=== PATIENT | female | born 1985 | race Caucasian/White ===

== ENCOUNTER → 2022-06-29 | Outpatient (CLI) | payer OTHER, SELFPAY | END | disposition home or self-care (01) | PROVIDERS: Referring Provider Physician Assistant; Visit Provider Physician Assistant | DX: R05.9 Cough, unspecified (principal) | CPT/HCPCS: 87070; 87077; 87205 ==

== ENCOUNTER → 2022-10-18 | Outpatient (CLI) | payer OTHER, SELFPAY ==
[2022-10-18 12:30] LABS: Absolute Lymphocyte Count 2.05 X10^3/uL (0.83-4.51); Absolute Neutrophil Count 3.9 X10^3/uL (2.0-7.7); Basophil# 0.05 X10^3/uL; Basophil% 0.8 % (0-1); Eosinophil# 0.04 X10^3/uL; Eosinophils% 0.6 % (0-5); Hematocrit 41.8 % (37-47); Hemoglobin 13.7 g/dL (12.0-15.0); Lymphocyte # 2.05 X10^3/ul (0.83-4.51); Lymphocyte % 32.2 % (19-41); Mean Corp Hgb Conc 32.8 g/dL (32-36); Mean Corpuscular Hgb 30.1 pg (27.0-32.0); Mean Corpuscular Volume 91.9 fL (81-99); Mean Platelet Vol. 11.2 fl (6.2-12.0); Monocyte# 0.36 X10^3/uL; Monocyte% 5.7 % (0-10); NRBC Flagged by Analyzer 0 % (0-5); Neutrophil # 3.85 X10^3/uL (2.7-7.7); Neutrophil % 60.5 % (47-70); Platelet Count 288 K/mm3 (150-450); RBC Distribution Width SD 42.9 fl (35.1-43.9); Red Blood Count 4.55 M/mm3 (4.2-5.4); White Blood Count 6.4 K/mm3 (4.4-11.0)
[2022-10-18 13:15] LABS: ALB/GLOB Ratio 1.1 RATIO (0.9-2.4); AST(SGOT) 14 U/L (15-37); Alanine Aminotransfer ALT/SGPT 33 U/L (13-56); Alkaline Phosphatase 57 U/L (45-117); Anion Gap 4 (5-15); BUN 10 mg/dL (7-18); BUN/Creat Ratio 13.1 RATIO (10-20); Calcium,Total 9.2 mg/dL (8.5-10.1); Chloride 107 mmol/L (98-107); Cholesterol 203 mg/dL (200); Creatinine, Serum 0.76 mg/dL (0.55-1.02); EST Glomerular Filtration Rate 91 mL/min (>60); Est Glom Filt Rate - Afr Amer 110 mL/min (>60); Globulin 3.8 g/dL (2.2-4.2); Glucose 93 mg/dL (74-106); High Density Lipoprotein 67 mg/dL; Potassium 4.1 mmol/L (3.5-5.1); Protein, Total 7.8 g/dL (6.4-8.2); Sodium Level 138 mmol/L (136-145); Triglycerides 114 mg/dL; Very Low Density Lipoprotein 23 mg/dL (5-40)
== END | disposition home or self-care (01) ==
LOC: BIMLAB 08:51
PROVIDERS: PCP Internal Medicine; Referring Provider Internal Medicine; Visit Provider Internal Medicine
DX: Z00.00 Encounter for general adult medical examination without abnormal findings (principal)
CPT/HCPCS: 36415; 80053; 80061; 85025

== ENCOUNTER → 2022-11-20 | Outpatient (CLI) | payer OTHER, SELFPAY ==
[2022-11-29 20:12] LABS: HPV APTIMA, High Risk Negative (Negative)
== END | disposition home or self-care (01) ==
PROVIDERS: PCP Internal Medicine; Referring Provider Nurse Practitioner Women's Health; Visit Provider Nurse Practitioner Women's Health
DX: N97.9 Female infertility, unspecified (principal); Z12.4 Encounter for screening for malignant neoplasm of cervix
CPT/HCPCS: 36415; 87624; 88175; G0145

== ENCOUNTER → 2023-04-28 | Outpatient (CLI) | payer OTHER, SELFPAY ==
--- NOTE | 2023-04-28 11:58 | BI_ITS ---
MAMMOGRAPHY - BILATERAL SCREENING REASON FOR EXAM: Female, 37 years old. Routine annual screening examination. PERTINENT HISTORY: Grandmother with breast cancer. TECHNIQUE: Digital bilateral breast phuong (3D mammographic acquisition) in the CC and MLO projections. 2-D mediolateral oblique (MLO) and craniocaudad (CC) views of both breasts were obtained. CAD: Full Field Digital Mammography with Computer Added Detection was performed. COMPARISON: None. Baseline examination. FINDINGS: Breast Composition: The breasts are extremely dense, which lowers the sensitivity of mammography. There are no dominant masses or suspicious calcifications. Small benign appearing bilateral axillary lymph nodes. No other significant abnormalities are identified. There has been no significant change since the prior study. BI/SCRN MAMM (CAD)W/PHUONG BILAT IMPRESSION: Stable bilateral screening mammogram. Yearly follow-up mammogram recommended. (A) ASSESSMENT CATEGORY: BIRADS Category 2: Benign. A letter regarding these results will be sent to the patient by the facility within 30 days. Approximately 10% of breast cancers are not detected by mammography. A normal mammogram should not delay biopsy of a clinically suspicious abnormality. [id number] Electronically Signed: Michael Mead MD at 14:42 EDT ,
== END | disposition home or self-care (01) ==
LOC: OPBI 11:56
PROVIDERS: PCP Internal Medicine; Referring Provider Nurse Practitioner Women's Health; Visit Provider Nurse Practitioner Women's Health
DX: Z12.31 Encounter for screening mammogram for malignant neoplasm of breast (principal); Z80.3 Family history of malignant neoplasm of breast
CPT/HCPCS: 77063; 77067

== ENCOUNTER → 2023-11-24 | Outpatient (CLI) | payer OTHER, SELFPAY ==
--- OUTSIDE RECORDS SUMMARY | 2023-11-24 13:15 | XMS RPT_ITS | CCD ---
Author Name Unknown Address [address] [place] [address] Organization [facility] Care Team Providers Care Forms Examiner Name Role Phone Keisha JACKSON, Luma Mullins Primary Care Provider Unavailable Primary Care Provider Unavailabl e Allergies Allergy Classification Reported Allergen(s) Allergy Type Date of Onset Reaction(s) Facility (2 sources) cow milk allergenic extract Drug Allergy 12-06-2019 [facility] Medications Current Medications Medication Drug Class(es) Dates Sig (Normalized) Sig (Original) amoxicillin 875 mg / clavulanate 125 mg oral tablet (1 source) Penicillin-class Antibacterial Start: 05-19-2022 End: 05-26-2022 take 1 tablet by mouth twice daily amoxicillin-clav ulanic acid (AUGMENTIN) 875-125 mg per tablet Indications: Bacterial sinusitis Take 1 tablet by mouth twice daily for 7 days. 14 tablet 0 05/19/2022 05/26/2022 Active Completed/Discontinued Medications Medication Drug Class(es) Dates Sig (Normalized) Sig (Original) ascorbic acid/collagen hydr (ASCORBIC ACID-COLLAGEN ORAL) (2 sources) ascorbic acid/co llagen hydr (ASCORBIC ACID-COLLAGEN ORAL) Take by mouth. 0 Active Problems Problem Classification Problem Date Documented Da te Episodic/Chronic Other upper respiratory infections (1 source) Bacterial sinusitis; Translations: [Chronic sinusitis, unspecified] Chronic Other upper respiratory infections (1 source) Recurrent acute sinusitis; Translations: [Acute recurrent maxillary sinusitis] Episodic Results Test Name Value Interpretation Reference Range Facil ity Vital Signs Date Time Vital Sign Value Performing Clinician Faci lity 06-09-2022 10:57-0400 Body temperature 98.29 [degF] Zaira Hanley APRN.SOCIAL SERVICE TECHNICIAN Work Phone: [facility] 06-09-2022 10:57-0400 Body weight 92.99 kg Zaira Hanley CARBONIZER TESTER.SOCIAL SERVICE TECHNICIAN Work Phone: [facility] 06-09-2022 10:57-0400 Diastolic blood pressure 84 mm[Hg] Zaira Talon CARBONIZER TESTER.SOCIAL SERVICE TECHNICIAN Work Phone: [facility] 06-09-2022 10:57-0400 Heart rate 72 /min Zaira Talon CARBONIZER TESTER.SOCIAL SERVICE TECHNICIAN Work Phone: [facility] 06-09-2022 10:57-0400 Respiratory rate 20 /min Zaira Talon CARBONIZER TESTER.SOCIAL SERVICE TECHNICIAN Work Phone: [facility] 06-09-2022 10:57-0400 SaO2% (BldA) [Mass fraction] 100 % Zaira Pondk CARBONIZER TESTER.SOCIAL SERVICE TECHNICIAN Work Phone: [facility] 06-09-2022 10:57-0400 Systolic blood pressure 126 mm[Hg] Zaira Pondk CARBONIZER TESTER.SOCIAL SERVICE TECHNICIAN Work Phone: [facility] 05-19-2022 08:51-0400 Body temperature 97.2 [degF] Elliott Tompkins CARBONIZER TESTER.SOCIAL SERVICE TECHNICIAN Work Phone: [facility] 05-19-2022 08:51-0400 Body weight 93.62 kg Elliott Tompkins CARBONIZER TESTER.SOCIAL SERVICE TECHNICIAN Work Phone: [facility] 05-19-2022 08:51-0400 Diastolic blood pressure 70 mm[Hg] Elliott Tompkins CARBONIZER TESTER.SOCIAL SERVICE TECHNICIAN Work Phone: [facility] 05-19-2022 08:51-0400 Heart rate 94 /min Elliott Tompkins CARBONIZER TESTER.SOCIAL SERVICE TECHNICIAN Work Phone: [facility] 05-19-2022 08:51-0400 SaO2% (BldA) [Mass fraction] 99 % Elliott Tompkins CARBONIZER TESTER.SOCIAL SERVICE TECHNICIAN Work Phone: [facility] 05-19-2022 08:51-0400 Systolic blood pressure 108 mm[Hg] Elliott Tompkins CARBONIZER TESTER.SOCIAL SERVICE TECHNICIAN Work Phone: [facility] Encounters Encounter Date Encounter Type Care Provider Facility Start: 06-09-2022 End: 06-09-2022 Office outpatient visit 15 minutes Zaira Talon MARRUFO Work Phone: [facility] Plan of Treatment Date Care Activity Detail Author Start: 12-06-2024 HPV TESTING HPV TESTING [facility] Start: 12-06-2024 PAP TESTING PAP TESTING [facility] Start: 06-20-2022 Influenza vaccination INFLUENZA (#1) [facility] Start: 2005 Urine microalbumin profile DTAP,TDAP ,TD (1 - Tdap) [facility] Start: 2004 HEPATITIS C SCREENING HEPATITIS C SC REENING [facility] Start: 2004 HIV SCREENING HIV SCREENING [facility] Start: 1998 Adult depression [facility] assessment DEPRESSION SCREENING [facility] Start: 1986 HEPATITIS B (1 of 3 - 3-dose series) HEPATITIS B (1 of 3 - 3-dose series) [facility] Payers Date Payer Category Payer Unknown MMO O S [id number] 2016-Present [phone] [address] [address] [place] [address] Indemnity [id number] 2016 Unknown MMO O [employer] [id number] 2016-Present [phone] [address] [address] [place] [address] Indemnity [id number] Social History Date Type Detail Facility Start: 11-05-2016 End: 06-09-2022 Tobacco smoking status NHIS Never smoked tobacco [facility] Work Phone: Start: 11-05-2016 End: 06-09-2022 Tobacco use and exposure Smokeless tobacco non-user [facility] Work Phone: Start: 05-19-2022 End: 06-09-2022 Alcohol intake Current drinker of alcohol (finding) [facility] Start: 1985 Sex Assigned At Not on file [facility] Start: 05-09-2022 End: 06-09-2022 Exposure to SARS-CoV-2 (event) Not sure [facility] Progress note 06-09-2022 Note Date & Type Note Facility 06-09-2022 Note HNO ID: [id number] Author: Zaira Hanley APRN.SOCIAL SERVICE TECHNICIAN Service: ? Author Type: Nurse Practitioner Type: Progress Notes Filed: 06/09/2022 11:50 AM Note Text: Subjective The history is provided by the patient. No educational speech language clinician was used. HPI Quincy Holland is a 36 year old female who presents today for CC of sinus pressure and congestion, and upper dental pain. This has worsened over the past 2 days. She has used Augmentin in the past 2 weeks seemed to be better, but came back worse. She also used flonase, claritin-d, and afrin BP 126/84 Pulse 72 Temp 36.8 ?C (98.3 ?F) Resp 20 Wt 93 kg (205 lb) LMP 11/27/2019 (Exact Date) SpO2 100% BMI 32.59 kg/m? Social History Tobacco Use Smoking status: Never Smokeless tobacco: Never Vaping Use Vaping Use: Never used Substance Use Topics Alcohol use: Yes Drug use: Never PAST MEDICAL HISTORY Diagnosis Date Psoriasis I have confirmed and edited as necessary, the [facility] Review of Systems Constitutional: Negative for chills, fever and malaise/fatigue. HENT: Positive for congestion and sinus pain. Negative for ear pain and sore throat. Respiratory: Negative for cough, sputum production, shortness of breath and wheezing. Cardiovascular: Negative for chest pain. Musculoskeletal: Negative for myalgias. Neurological: Positive for headaches. Objective Physical Exam Vitals and nursing note reviewed. Constitutional: Appearance: Normal appearance. HENT: Head: Normocephalic and atraumatic. Right Ear: Tympanic membrane, ear canal and external ear normal. Left Ear: Tympanic membrane, ear canal and external ear normal. Nose: Mucosal edema and rhinorrhea present. No congestion. Right Sinus: Maxillary sinus tenderness present. No frontal sinus tenderness. Left Sinus: Maxillary sinus tenderness present. No frontal sinus tenderness. Mouth/Throat: Pharynx: Uvula midline. No oropharyngeal exudate or posterior oropharyngeal erythema. Cardiovascular: Rate and Rhythm: Normal rate and regular rhythm. Heart sounds: Normal heart sounds. Pulmonary: Effort: Pulmonary effort is normal. Breath sounds: Normal breath sounds. Abdominal: Palpations: Abdomen is not rigid. Lymphadenopathy: Head: Right side of head: No submental, submandibular or tonsillar adenopathy. Left side of head: No submental, submandibular or tonsillar adenopathy. Cervical: No cervical adenopathy. Skin: General: Skin is warm and dry. Neurological: Mental Status: She is alert and oriented to person, place, and time. Psychiatric: Mood and Affect: Affect normal. ASSESSMENT/PLAN: 1. Acute recurrent maxillary sinusitis - ICD9: 461.0, ICD10: J01.01 - Will begin treatment with Doxycycline - Supportive care with plenty of fluids, rest, and analgesia prn. - Follow up in 2 weeks with ENT if symptoms persist or worsen. Diagnosis and treatment plan were discussed and questions were answered to the patient's satisfaction. Pt acknowledged understanding of concepts and follow up plan. Specific signs and symptoms that would indicate the need for higher level of care were discussed in detail warranting prompt ER evaluation. Zaira Hanley APRN.CNP [facility] Instructions 06-09-2022 Patient Instructions Note Date & Type Note Facility 06-09-2022 Instructions Zaira Hanley APRN.CNP - 06/09/2022 11:19 AM EDT -Increase fluid intake. --Rest as much as possible. - Nasal saline spray, patrick pot, flonase Take the entire course of antibiotics as prescribed. DO NOT stop taking it early, even if you are feeling better. -Monitor for signs of worsening infection: increased temperature, pain in face, ear pain or headaches or increase in nasal congestion/mucous that is not improving. -Educated patient on side effects of medication. Probiotic: Jewel Gonzalez, Morris. Do not take with antibiotic, make sure 2 hours between. documented in this encounter [facility] History of Present illness Narrative 06-09-2022 Zaira Hanley APRN.CNP - 06/09/2022 11:11 AM EDT Note Date & Type Note Facility 06-09-2022 History of Presen t illness Narrative Subjective The history is provided by the patient. No educational speech language clinician was used. HPI Quincy Holland is a 36 year old female who presents today for CC of sinus pressure and congestion, and upper dental pain. This has worsened over the past 2 days. She has used Augmentin in the past 2 weeks seemed to be better, but came back worse. She also used flonase, claritin-d, and afrin BP 126/84 Pulse 72 Temp 36.8 C (98.3 F) Resp 20 Wt 93 kg (205 lb) LMP 11/27/2019 (Exact Date) SpO2 100% BMI 32.59 kg/m Social History Tobacco Use Smoking status: Never Smokeless tobacco: Never Vaping Use Vaping Use: Never used Substance Use Topics Alcohol use: Yes Drug use: Never PAST MEDICAL HISTORY Diagnosis Date Psoriasis I have confirmed and edited as necessary, the [facility] Review of Systems Constitutional: Negative for chills, fever and malaise/fatigue. HENT: Positive for congestion and sinus pain. Negative for ear pain and sore throat. Respiratory: Negative for cough, sputum production, shortness of breath and wheezing. Cardiovascular: Negative for chest pain. Musculoskeletal: Negative for myalgias. Neurological: Positive for headaches. Objective Physical Exam Vitals and nursing note reviewed. Constitutional: Appearance: Normal appearance. HENT: Head: Normocephalic and atraumatic. Right Ear: Tympanic membrane, ear canal and external ear normal. Left Ear: Tympanic membrane, ear canal and external ear normal. Nose: Mucosal edema and rhinorrhea present. No congestion. Right Sinus: Maxillary sinus tenderness present. No frontal sinus tenderness. Left Sinus: Maxillary sinus tenderness present. No frontal sinus tenderness. Mouth/Throat: Pharynx: Uvula midline. No oropharyngeal exudate or posterior oropharyngeal erythema. Cardiovascular: Rate and Rhythm: Normal rate and regular rhythm. Heart sounds: Normal heart sounds. Pulmonary: Effort: Pulmonary effort is normal. Breath sounds: Normal breath sounds. Abdominal: Palpations: Abdomen is not rigid. Lymphadenopathy: Head: Right side of head: No submental, submandibular or tonsillar adenopathy. Left side of head: No submental, submandibular or tonsillar adenopathy. Cervical: No cervical adenopathy. Skin: General: Skin is warm and dry. Neurological: Mental Status: She is alert and oriented to person, place, and time. Psychiatric: Mood and Affect: Affect normal. ASSESSMENT/PLAN: 1. Acute recurrent maxillary sinusitis - ICD9: 461.0, ICD10: J01.01 - Will begin treatment with Doxycycline - Supportive care with plenty of fluids, rest, and analgesia prn. - Follow up in 2 weeks with ENT if symptoms persist or worsen. Diagnosis and treatment plan were discussed and questions were answered to the patient's satisfaction. Pt acknowledged understanding of concepts and follow up plan. Specific signs and symptoms that would indicate the need for higher level of care were discussed in detail warranting prompt ER evaluation. Zaira Hanley APRN.NORMA documented in this encounter [facility] Progress note 05-19-2022 Note Date & Type Note Facility 05-19-2022 Note HNO ID: [id number] Author: Elliott Tompkins APRN.NORMA Service: ? Author Type: Nurse Practitioner Type: Progress Notes Filed: 05/19/2022 9:18 AM Note Text: Subjective HPI HPI Quincy Holland is a 36 year old female who presents today for CC of sinus pressure, pain. This started 1 week ago, has had allergies for 3 weeks. Has tried otc medication for relief. Symptoms are worsened by nothing. Risk factors hx of chronic allergic rhinitis. Denies possibility of being . Nonsmoker. .Patient presents with: Nasal Congestion: nose, jaw pain rated 8, cerrato, x6 days PAST MEDICAL HISTORY Diagnosis Date - Psoriasis PAST SURGICAL HISTORY Procedure Laterality Date - ANKLE SURGERY HX Left bone spur removed ALLERGIES Milk MEDICATIONS loratadine (CLARITIN) 10 mg tablet Take 10 mg by mouth once daily. aspirin (MARY KATE 8-HOUR ORAL) Take by mouth. CALCIUM ORAL Take by mouth. VITAMIN B COMPLEX ORAL Take by mouth. MULTI-VITAMIN ORAL Take by mouth. ascorbic acid/collagen hydr (ASCORBIC ACID-COLLAGEN ORAL) Take by mouth. ketoconazole (NIZORAL) 2 % cream Apply 1 application to affected area twice daily. amoxicillin-clavulanic acid (AUGMENTIN) 875-125 mg per tablet Take 1 tablet by mouth twice daily for 7 days. FAMILY HISTORY Problem Relation Age of Onset - Blood Disease Mother - Thyroid Mother - Cancer Mother uterine - Heart Mother - Diabetes Father - Hypertension Father Social History Tobacco Use - Smoking status: Never Smoker - Smokeless tobacco: Never Used Vaping Use - Vaping Use: Never used Substance Use Topics - Alcohol use: Yes - Drug use: Never Review of Systems Constitutional: Negative for fever. HENT: Positive for congestion and sinus pain. Negative for ear pain, nosebleeds and sore throat. Respiratory: Negative for cough, shortness of breath and wheezing. Cardiovascular: Negative for chest pain. Musculoskeletal: Negative for neck pain. Skin: Negative for itching and rash. Objective Blood pressure 108/70, pulse 94, temperature 36.2 ?C (97.2 ?F), weight 93.6 kg (206 lb 6.4 oz), last menstrual period 11/27/2019, SpO2 99 %. Physical Exam Constitutional: General: She is not in acute distress. Appearance: She is not toxic-appearing or diaphoretic. HENT: Head: Normocephalic and atraumatic. Right Ear: Hearing, tympanic membrane, ear canal and external ear normal. Left Ear: Hearing, tympanic membrane, ear canal and external ear normal. Nose: Right Sinus: Frontal sinus tenderness present. Left Sinus: Frontal sinus tenderness present. Eyes: General: Lids are normal. No scleral icterus. Right eye: No discharge. Left eye: No discharge. Conjunctiva/sclera: Conjunctivae normal. Pupils: Pupils are equal, round, and reactive to light. Neck: Trachea: Trachea normal. Cardiovascular: Rate and Rhythm: Normal rate and regular rhythm. Heart sounds: Normal heart sounds. Pulmonary: Effort: Pulmonary effort is normal. Breath sounds: Normal breath sounds. Musculoskeletal: Cervical back: Normal range of motion and neck supple. Lymphadenopathy: Cervical: No cervical adenopathy. Right cervical: No superficial cervical adenopathy. Left cervical: No superficial cervical adenopathy. Skin: Findings: No rash. Neurological: Mental Status: She is alert and oriented to person, place, and time. ASSESSMENT/PLAN: 1. Bacterial sinusitis - ICD9: 473.9, 041.9, ICD10: J32.9, B96.89 - Will begin treatment with Augmentin 875 mg PO BID for 7 days - Supportive care with plenty of fluids, rest, and analgesia prn. - Follow up in 3-5 days if symptoms persist or worsen. - AMOXICILLIN 875 MG-POTASSIUM CLAVULANATE 125 MG TABLET Agrees to plan Elliott Tompkins APRN.CNP [facility] History of Present illness Narrative 05-19-2022 Elliott Tompkins APRN.NORMA - 05/19/2022 9:15 AM EDT Note Date & Type Note Facility 05-19-2022 History of Presen t illness Narrative Subjective HPI HPI Quincy Holland is a 36 year old female who presents today for CC of sinus pressure, pain. This started 1 week ago, has had allergies for 3 weeks. Has tried otc medication for relief. Symptoms are worsened by nothing. Risk factors hx of chronic allergic rhinitis. Denies possibility of being . Nonsmoker. .Patient presents with: Nasal Congestion: nose, jaw pain rated 8, cerrato, x6 days PAST MEDICAL HISTORY Diagnosis Date Psoriasis PAST SURGICAL HISTORY Procedure Laterality Date ANKLE SURGERY HX Left bone spur removed ALLERGIES Milk MEDICATIONS loratadine (CLARITIN) 10 mg tablet Take 10 mg by mouth once daily. aspirin (MARY KATE 8-HOUR ORAL) Take by mouth. CALCIUM ORAL Take by mouth. VITAMIN B COMPLEX ORAL Take by mouth. MULTI-VITAMIN ORAL Take by mouth. ascorbic acid/collagen hydr (ASCORBIC ACID-COLLAGEN ORAL) Take by mouth. ketoconazole (NIZORAL) 2 % cream Apply 1 application to affected area twice daily. amoxicillin-clavulanic acid (AUGMENTIN) 875-125 mg per tablet Take 1 tablet by mouth twice daily for 7 days. FAMILY HISTORY Problem Relation Age of Onset Blood Disease Mother Thyroid Mother Cancer Mother uterine Heart Mother Diabetes Father Hypertension Father Social History Tobacco Use Smoking status: Never Smoker Smokeless tobacco: Never Used Vaping Use Vaping Use: Never used Substance Use Topics Alcohol use: Yes Drug use: Never Review of Systems Constitutional: Negative for fever. HENT: Positive for congestion and sinus pain. Negative for ear pain, nosebleeds and sore throat. Respiratory: Negative for cough, shortness of breath and wheezing. Cardiovascular: Negative for chest pain. Musculoskeletal: Negative for neck pain. Skin: Negative for itching and rash. Objective Blood pressure 108/70, pulse 94, temperature 36.2 C (97.2 F), weight 93.6 kg (206 lb 6.4 oz), last menstrual period 11/27/2019, SpO2 99 %. Physical Exam Constitutional: General: She is not in acute distress. Appearance: She is not toxic-appearing or diaphoretic. HENT: Head: Normocephalic and atraumatic. Right Ear: Hearing, tympanic membrane, ear canal and external ear normal. Left Ear: Hearing, tympanic membrane, ear canal and external ear normal. Nose: Right Sinus: Frontal sinus tenderness present. Left Sinus: Frontal sinus tenderness present. Eyes: General: Lids are normal. No scleral icterus. Right eye: No discharge. Left eye: No discharge. Conjunctiva/sclera: Conjunctivae normal. Pupils: Pupils are equal, round, and reactive to light. Neck: Trachea: Trachea normal. Cardiovascular: Rate and Rhythm: Normal rate and regular rhythm. Heart sounds: Normal heart sounds. Pulmonary: Effort: Pulmonary effort is normal. Breath sounds: Normal breath sounds. Musculoskeletal: Cervical back: Normal range of motion and neck supple. Lymphadenopathy: Cervical: No cervical adenopathy. Right cervical: No superficial cervical adenopathy. Left cervical: No superficial cervical adenopathy. Skin: Findings: No rash. Neurological: Mental Status: She is alert and oriented to person, place, and time. ASSESSMENT/PLAN: 1. Bacterial sinusitis - ICD9: 473.9, 041.9, ICD10: J32.9, B96.89 - Will begin treatment with Augmentin 875 mg PO BID for 7 days - Supportive care with plenty of fluids, rest, and analgesia prn. - Follow up in 3-5 days if symptoms persist or worsen. - AMOXICILLIN 875 MG-POTASSIUM CLAVULANATE 125 MG TABLET Agrees to plan Elliott Tompkins APRN.CNP documented in this encounter [facility] Instructions 05-19-2022 Patient Instructions Note Date & Type Note Facility 05-19-2022 Instructions Elliott Tompkins APRN.CNP - 05/19/2022 9:08 AM EDT SINUSITIS: You have sinusitis, an infection of the sinus cavities around the nose. This infection usually follows a respiratory illness; it can also be related to allergies, changes in atmospheric pressure (flying, diving), or anything that blocks nasal drainage. Symptoms include: headache, facial pain, a thick nasal discharge, congestion, and cough. The treatment includes antibiotic therapy, increasing oral fluids, and pain medication if needed. Nose spray decongestants (Afrin, Surinder-Synephrine) and oral decongestants may be needed to reduce congestion and drainage. Rarely the sinus must be irrigated to remove the infected material. Sinusitis can lead to serious complications by spreading to other areas such as the eye or brain. Please call your doctor or return here right away if you have any of the following more serious symptoms: Unusual swelling around the eye or trouble seeing. Increasing pain, severe headache, or toothache. Nausea, vomiting, or unusual drowsiness. documented in this encounter [facility] Evaluation note Note Date & Type Note Facility documented in this encounter [facility] Evaluation note Note Date & Type Note Facility documented in this encounter [facility] Summary Purpose Family History No Family History Records FoundNo Family History Records Found Advance Directives No Advanced Directives Records FoundNo Advanced Directives Records Found Additional Source Comments INFORMATION SOURCE (unrecogn ized section and content) DATE CREATED AUTHOR AUTHOR'S ORGANIZ ATION 06/13/2022 [facility] Source Comments (unrecognize d section and content) In the event this informatio n is protected by the Federal Confidentiality of Alcohol and Drug Abuse Patient Records regulations: The Federal rules restrict any use of the information to criminally investigate or prosecute any alcohol or drug abuse patient[facility] the event this information is protected by the Federal Confidentiality of Alcohol and Drug Abuse Patient Records regulations: The Federal rules restrict any use of the information to criminally investigate or prosecute any alcohol or drug abuse patient.[facility] Reason for Visit (unrecogniz ed section and content) Reason Comments Sinus Infection,frequent/recurring Seen 05/19, symptoms now returning Care Teams (unrecognized sec tion and content) FOR RECORDS PERTAINING TO PATIENTS WHO ARE OR HAVE BEEN ENROLLED IN A CHEMICAL DEPENDENCY/SUBSTANCEABUSE PROGRAM, SOME INFORMATION MAY BE OMITTED. This clinical summary was aggregated from multiple sources. Caution should be exercised in using it in the provision of clinical care. This summary normalizes information from multiple sources, and as a consequence, information in this document may materially change the coding, format and clinical context of patient data. In addition, data may be omitted in some cases. CLINICAL DECISIONS SHOULD BE BASED ON THE PRIMARY CLINICAL RECORDS. [facility] [employer] [facility]. provides no warranty or guarantee of the accuracy or completeness of information in this document.
[2023-11-27 18:08] LABS: HPV APTIMA, High Risk Negative (Negative)
== END | disposition home or self-care (01) ==
LOC: LABSPEC 12:53
PROVIDERS: PCP Internal Medicine; Referring Provider Nurse Practitioner Women's Health; Visit Provider Nurse Practitioner Women's Health
DX: Z12.4 Encounter for screening for malignant neoplasm of cervix (principal)
CPT/HCPCS: 87624; 88175; G0145

== ENCOUNTER → 2025-03-03 | Outpatient (CLI) | payer OTHER, SELFPAY ==
--- NOTE | 2025-03-03 07:19 | BI_ITS ---
EXAM: SCRN MAMM (CAD)W/PHUONG BILAT DATE: 03/03/2025 CLINICAL HISTORY: F, Age 39 y/o , SCREEN Grandmother with breast cancer. BREAST CANCER RISK ASSESSMENT: Not assessed TECHNIQUE: Bilateral screening digital breast tomosynthesis with 2D and 3D images. Computer aided detection. COMPARISON: Prior exam(s) dated April 28, 2023.. FINDINGS: TISSUE DENSITY: The breast tissue is extremely dense which lowers the sensitivity of mammography. Bilateral Breast Mammographic Findings: No significant masses, calcifications or other abnormalities are identified. Stable bilateral benign-appearing axillary lymph nodes. No suspicious masses, areas of developing architectural distortion, or suspicious calcifications. There has been no significant interval change. BI/SCRN MAMM (CAD)W/PHUONG BILAT IMPRESSION: OVERALL FINAL ASSESSMENT: BIRADS 2 BENIGN FINDING RECOMMENDATION: Routine annual follow-up in 1 Year A letter with findings and recommendations will be mailed to the patient. Reading Location: [id number]
== END | disposition home or self-care (01) ==
LOC: OPBI 07:18
PROVIDERS: PCP Internal Medicine; Referring Provider Nurse Practitioner Women's Health; Visit Provider Nurse Practitioner Women's Health
DX: Z12.31 Encounter for screening mammogram for malignant neoplasm of breast (principal)
CPT/HCPCS: 77063; 77067